=== PATIENT | male | born 1975 | race African-American/Black ===

== ENCOUNTER 2020-06-10 15:51 | Emergency (ER) | payer OTHER ==
[~2020-06-10] VITALS: Ht 180.3 cm; Wt 96.0 kg
[2020-06-10 16:01] VITALS: BP 131/80
--- NOTE | 2020-06-10 16:04 | NUR ---
PT BIB LAW ENFORCMENT FOR RIGHT HAND LACERATION SUSTAINED X2 DAYS AGO FOLLOWING A FALL DOWN A RAVINE. PER PT, "I CLEANED IT REALLY GOOD, WASHED IT OUT AND THEN WORE A RUBBER GLOVE OVER IT TO KEEP IT CLEAN". PER PT SO MEDICAL STAFF APPLIED OINTMENT AND CLEANED THE AREA PRIOR TO WRAPPING THE AREA W/GAUZE. VSS. NAD MONITORS CONNECTED. DEPUTY AT [facility].
[2020-06-10] MEDS ORDERED: NEOSPORIN OINT. PKT 1 PACKET ONE (16:32)
--- NOTE | 2020-06-10 17:56 | NUR ---
PT AMBULATED TO D/C W/STEADY GAIT ESCORTED BY [facility]. PT ENCOURAGED TO FOLLOWUP DISCUSSED. PT EDUCATED TO KEEP AREA CLEAN AND DRY AND TO REPORT S/S OF INFECTION TO [facility]. RX GIVEN TO DEPUTY
== END 2020-06-10 18:01 | disposition home or self-care (01) ==
LOC: ED 17:05
DX: S61.411A Laceration without foreign body of right hand, initial encounter (principal); W01.0XXA Fall on same level from slipping, tripping and stumbling without subsequent striking against object, initial encounter; Y93.89 Activity, other specified; Y92.488 Other paved roadways as the place of occurrence of the external cause; Y99.8 Other external cause status
CPT/HCPCS: 99283